=== PATIENT | female | born 1985 | race Two or more races ===

== ENCOUNTER 2017-08-28 08:56 | Emergency (ER) | payer SELFPAY ==
[~2017-08-28] VITALS: Ht 160 cm; Wt 63.5 kg
--- NOTE | 2017-08-28 09:25 | PHYS DOC ---
Adult General Chief Complaint Chief Complaint: VAGINAL BLEEDING [facility] Patient is a 32 year old female 5 weeks presents to the ED complaining of vaginal bleeding since this morning. Last menstrual period was July 28. Woke up with spotting. No history before. Complains of mild abdominal cramping. Denies fever, chest pain, shortness of breath, dizziness, weakness, nausea/vomiting or headache. Review of Systems Review of Systems Constitutional: Denies fever or chills [] Eyes: Denies change in visual acuity, redness, or eye pain [] HENT: Denies nasal congestion or sore throat [] Respiratory: Denies cough or shortness of breath [] Cardiovascular: No additional information not addressed in HPI [] GI: Complains of abdominal cramping. nausea, vomiting, bloody stools or diarrhea [] : Complains of vaginal bleeding. Denies dysuria or hematuria [] Musculoskeletal: Denies back pain or joint pain [] Integument: Denies rash or skin lesions [] Neurologic: Denies headache, focal weakness or sensory changes [] Endocrine: Denies polyuria or polydipsia [] Allergies Allergies Allergies Coded Allergies Type Severity Reaction Last Updated Verified No Known Drug Allergies 08/28/17 No Physical Exam Physical Exam Constitutional: Well developed, well nourished, no acute distress, non-toxic appearance. [] HENT: Normocephalic, atraumatic, bilateral external ears normal, oropharynx moist, no oral exudates, nose normal. [] Eyes: PERRLA, EOMI, conjunctiva normal, no discharge. [] Neck: Normal range of motion, no tenderness, supple, no stridor. [] Cardiovascular:Heart rate regular rhythm, no murmur [] Lungs & Thorax: Bilateral breath sounds clear to auscultation [] Abdomen: Bowel sounds normal, soft, no tenderness, no masses, no pulsatile masses. [] PATIENT REFUSED EXAM. Skin: Warm, dry, no erythema, no rash. [] Back: No tenderness, no CVA tenderness. [] Extremities: No tenderness, no cyanosis, no clubbing, ROM intact, no edema. [] Neurologic: Alert and oriented X 3, normal motor function, normal sensory function, no focal deficits noted. [] Psychologic: Affect normal, judgement normal, mood normal. [] Current Patient Data Vital Signs Vital Signs Date Time Temp Pulse Resp B/P (MAP) Pulse Ox O2 Delivery O2 Flow Rate FiO2 08/28/17 12:18 98.7 78 18 115/68 (84) 99 Room Air 98.7 Lab Values Laboratory Tests Test 08/28/17 09:15 08/28/17 09:21 08/28/17 09:40 Urine Collection Type Unknown Urine Color Yellow Urine Clarity Clear Urine pH 8.0 Urine Specific [place] 1.010 Urine Protein Negative mg/dL (NEG-TRACE) Urine Glucose (UA) Negative mg/dL (NEG) Urine Ketones (Stick) Negative mg/dL (NEG) Urine Blood Large (NEG) Urine Nitrite Negative (NEG) Urine Bilirubin Negative (NEG) Urine Urobilinogen Dipstick 0.2 mg/dL (0.2 mg/dL) Urine Leukocyte Esterase Negative (NEG) Urine RBC 11-20 /HPF (0-2) Urine WBC Rare /HPF (0-4) Urine Squamous Epithelial Cells Few /LPF Urine Bacteria Few /HPF (0-FEW) POC Urine HCG, Qualitative Hcg positive (Negative) White Blood Count 5.2 x10^3/uL (4.0-11.0) Red Blood Count 4.34 x10^6/uL (3.50-5.40) Hemoglobin 14.3 g/dL (12.0-15.5) Hematocrit 41.1 % (36.0-47.0) Mean Corpuscular Volume 95 fL (79-100) Mean Corpuscular Hemoglobin 33 pg (25-35) Mean Corpuscular Hemoglobin Concent 35 g/dL (31-37) Red Cell Distribution Width 12.9 % (11.5-14.5) Platelet Count 249 x10^3/uL (140-400) Neutrophils (%) (Auto) 60 % (31-73) Lymphocytes (%) (Auto) 34 % (24-48) Monocytes (%) (Auto) 6 % (0-9) Eosinophils (%) (Auto) 0 % (0-3) Basophils (%) (Auto) 0 % (0-3) Neutrophils # (Auto) 3.1 x10^3uL (1.8-7.7) Lymphocytes # (Auto) 1.8 x10^3/uL (1.0-4.8) Monocytes # (Auto) 0.3 x10^3/uL (0.0-1.1) Eosinophils # (Auto) 0.0 x10^3/uL (0.0-0.7) Basophils # (Auto) 0.0 x10^3/uL (0.0-0.2) Maternal Serum HCG Beta Subunit 495 mIU/mL (0-5) H Sodium Level 140 mmol/L (136-145) Potassium Level 3.9 mmol/L (3.5-5.1) Chloride Level 104 mmol/L (98-107) Carbon Dioxide Level 27 mmol/L (21-32) Anion Gap 9 (6-14) Blood Urea Nitrogen 7 mg/dL (7-20) Creatinine 0.6 mg/dL (0.6-1.0) Estimated GFR (Cockcroft-Gault) 117.4 BUN/Creatinine Ratio 12 (6-20) Glucose Level 101 mg/dL (70-99) H Calcium Level 9.2 mg/dL (8.5-10.1) Total Bilirubin 0.7 mg/dL (0.2-1.0) Aspartate Amino Transferase (AST) 17 U/L (15-37) Alanine Aminotransferase (ALT) 25 U/L (14-59) Alkaline Phosphatase 46 U/L (46-116) Total Protein 7.6 g/dL (6.4-8.2) Albumin 4.2 g/dL (3.4-5.0) Albumin/Globulin Ratio 1.2 (1.0-1.7) Serum Test, Qualitative Positive (NEG) Laboratory Tests 08/28/17 09:40 Laboratory Tests 08/28/17 09:40 EKG EKG [] Radiology/Procedures Radiology/Procedures PROCEDURE: OB < 14 WKS Examination: First trimester ultrasound Comparison: None History: History of vaginal bleeding Comparison: None available Findings The uterus measures 8.4 x 4 0.9 to 4.8 cm The endometrium measures 1.9 cm in thickness On the transabdominal images there appears to be an abnormal shaped gestational sac measuring 2.1 cm however on the transvaginal images the endometrium does not demonstrate an obvious gestational sac ,(per technologist patient passed blood clots between the transabdominal, and transvaginal images, when patient used the restroom). The right ovary measures 3.9 x 2.4 x 3.0 cm. The left ovary measures 2.8 x 1.1 x 2.5 cm. Impression: 1. Abnormal shape gestational sac identified on the transabdominal images, however on the transvaginal images the endometrium does not demonstrate an obvious gestational sac ,(per technologist patient passed blood clots between the transabdominal, and transvaginal images, when patient used the restroom). This could probably due to ongoing miscarriage. Correlate clinically. Follow-up examination and quantitative beta-hCG levels is recommended.[] Course & Med Decision Making Course & Med Decision Making Pertinent Labs and Imaging studies reviewed. (See chart for details) []Discussed lab and imaging findings with patient. No active bleeding. Patient refused exam. On examination, abdomen is soft nontender nondistended. No peritoneal signs. Rhogam given. Discussed follow-up with [facility] for repeat beta hCG and ultrasound in 3-5 days. Discussed the importance of follow-up and reasons to return to the ED. Patient understands and agrees with plan. Family at bedside. Dragon Disclaimer Dragon Disclaimer This electronic medical record was generated, in whole or in part, using a voice recognition dictation system. Departure Departure Impression: Primary Impression: Threatened miscarriage Disposition: HOME, SELF-CARE Condition: STABLE Referrals: JOSE MARTIN Jr, MD Patient Instructions: Threatened Miscarriage ANG [place]ISON Aug 28, 2017 09:25
[2017-08-28 09:50] LABS: BILIRUBIN,URINE NEGATIVE (NEG); GLUCOSE,URINE NEGATIVE (NEG); NITRITE,URINE NEGATIVE (NEG); PROTEIN,URINE NEGATIVE (NEG-TRACE); UROBILINOGEN,URINE 0.2 mg/dL (0.2 mg/dL)
[2017-08-28 10:01] LABS: BACTERIA,URINE FEW /HPF (0-FEW); WBC,URINE RARE /HPF (0-4)
[2017-08-28 10:02] LABS: SQUAMOUS EPITHELIAL CELL,UR FEW /LPF
[2017-08-28 10:08] LABS: BASO % 0 % (0-3); EOS % 0 % (0-3); HEMATOCRIT 41.1 % (36.0-47.0); HEMOGLOBIN 14.3 g/dL (12.0-15.5); LYMPH # 1.8 x10^3/uL (1.0-4.8); LYMPH % 34 % (24-48); MEAN CORPUSCULAR HEMOGLOBIN 33 pg (25-35); MEAN CORPUSCULAR HGB CONC 35 g/dL (31-37); MEAN CORPUSCULAR VOLUME 95 fL (79-100); MONO % 6 % (0-9); NEUT % 60 % (31-73); PLATELET COUNT 249 x10^3/uL (140-400); RED BLOOD COUNT 4.34 x10^6/uL (3.50-5.40); RED CELL DISTRIBUTION WIDTH 12.9 % (11.5-14.5); WHITE BLOOD COUNT 5.2 x10^3/uL (4.0-11.0)
[2017-08-28 10:11] LABS: CALCIUM 9.2 mg/dL (8.5-10.1); CREATININE 0.6 mg/dL (0.6-1.0); GFR 117.4; POTASSIUM 3.9 mmol/L (3.5-5.1)
[2017-08-28 10:15] LABS: NEG OBC SER NEG; POS OBC SER POS
[2017-08-28 10:18] LABS: ALBUMIN 4.2 g/dL (3.4-5.0); ALBUMIN/GLOBULIN RATIO 1.2 (1.0-1.7); TOTAL BILIRUBIN 0.7 mg/dL (0.2-1.0); TOTAL PROTEIN 7.6 g/dL (6.4-8.2)
--- NOTE | 2017-08-28 11:11 | RAD ---
Examination: First trimester ultrasound Comparison: None History: History of vaginal bleeding Comparison: None available Findings The uterus measures 8.4 x 4 0.9 to 4.8 cm The endometrium measures 1.9 cm in thickness On the transabdominal images there appears to be an abnormal shaped gestational sac measuring 2.1 cm however on the transvaginal images the endometrium does not demonstrate an obvious gestational sac ,(per technologist patient passed blood clots between the transabdominal, and transvaginal images, when patient used the restroom). The right ovary measures 3.9 x 2.4 x 3.0 cm. The left ovary measures 2.8 x 1.1 x 2.5 cm. Impression: 1. Abnormal shape gestational sac identified on the transabdominal images, however on the transvaginal images the endometrium does not demonstrate an obvious gestational sac ,(per technologist patient passed blood clots between the transabdominal, and transvaginal images, when patient used the restroom). This could probably due to ongoing miscarriage. Correlate clinically. Follow-up examination and quantitative beta-hCG levels is recommended.
[2017-08-28 11:58] VITALS: BP 113/65
[2017-08-28 12:18] VITALS: BP 115/68
== END 2017-08-28 12:22 | disposition home or self-care (01) ==
LOC: ER 08:56
DX: O20.0 Threatened abortion (principal); Z3A.01 Less than 8 weeks gestation of pregnancy
CPT/HCPCS: 36415; 76801; 80053; 81001; 81025; 84702; 84703; 85025; 86850; 86900; 86901; 99285; J2791